=== PATIENT | male | born 1980 | race Asian ===

== ENCOUNTER 2022-08-15 12:35 | Emergency (ER) | payer MEDICAID ==
[~2022-08-15] VITALS: Ht 170.2 cm; Wt 63.7 kg
[2022-08-15 14:12] VITALS: BP 132/78
[2022-08-15] MEDS ORDERED: AZIT500T66 PO (15:21)
[2022-08-15] MEDS ORDERED: METH4PAK PO (15:21)
[2022-08-15] MEDS ORDERED: BENZ100C19 PO (15:21)
== END 2022-08-15 15:26 | disposition home or self-care (01) ==
LOC: ER 12:35
DX: J03.90 Acute tonsillitis, unspecified (principal); J20.9 Acute bronchitis, unspecified; R07.89 Other chest pain; Z20.822 Contact with and (suspected) exposure to COVID-19
CPT/HCPCS: 36415; 71046; 87426; 93005

== ENCOUNTER 2022-09-08 11:42 | Emergency (ER) | payer MEDICAID ==
[~2022-09-08] VITALS: Ht 170.2 cm; Wt 62.6 kg
[~2022-09-08 11:42] MED LIST: AZIT500T66 PO; BENZ100C19 PO; METH4PAK PO
[2022-09-08 12:18] VITALS: BP 120/75
== END 2022-09-08 16:30 | disposition left against medical advice (07) ==
LOC: ER 11:42
DX: R05.9 Cough, unspecified (principal); R07.89 Other chest pain; Z20.822 Contact with and (suspected) exposure to COVID-19
CPT/HCPCS: 36415; 71046; 87426; 87804